=== PATIENT | female | born 1985 | race Caucasian/White ===

== ENCOUNTER 2023-04-24 08:28 | Observation (INO) | payer BC ==
--- NOTE | 2023-04-24 08:38 | ERPHSYRPT ---
- History of Present Illness Time Seen by Provider: 04/24/23 08:38 Historian: patient Exam Limitations: no limitations Patient Subjective Stated Complaint: Pt states "I started to get a headache at [employer] yesterday and last night I had a fever then when I was sleeping, my chest started to hurt. It felt like I could not get a breath in." Triage Nursing Assessment: Pt presented alert and oriented X 3, skin pwd. Pt ambulates with an upright steady gait, able to speak in clear full sentences. Pt resting comfortably on the bed. Physician History: This is a 37-year-old white female patient with no known cardiac disease or coronary artery disease who states that the prior to this evaluation she noticed her feeling kind of hot and sweaty. She did not take her temperature at that time. However within the next couple of days she had a pretty significant headache followed by what she felt was a fever then a sharp central substernal nonradiating chest pain and some mild shortness of breath. The symptoms have persisted since yesterday and therefore she came in to the emergency department for evaluation. Patient presents very anxious. Her room air oxygenation saturation level is 100%. She does have a history of elevated cholesterol which she drinks an herb solution for this medical issue. Patient d oes state that a week before, her children were sick with viral illness. Patient has not had any nausea vomiting or diarrhea symptoms. She has not had a cough. Timing/Duration: day(s) (4) Quality: sharpness, stabbing Location: substernal, central Chest Pain Radiation: no radiation Severity of Pain-Max: mild (To moderate) Severity of Pain-Current: mild Modifying Factors: Improves With: nothing Associated Symptoms: shortness of breath, No cough Prior Chest Pain/Cardiac Workup: no prior chest pain, no prior cardiac workup Nitro Today/Relief: no nitro taken today Aspirin Treatment Today: 81 mg x 4, provided by ED Allergies/Adverse Reactions: cefaclor [From Ceclor] Allergy (Intermediate, Verified 04/24/23 08:36) Hives Home Medications: No Reportable Medications [No Reported Medications] 04/24/23 [History] Hx Tetanus, Diphtheria Vaccination/Date Given: No Hx Influenza Vaccination/Date Given: No Hx Pneumococcal Vaccination/Date Given: No Immunizations Up to Date: No Travel Risk - International Travel Have you traveled outside of the country in past 3 weeks: No - Coronavirus Screening Are you exhibiting any of the following symptoms?: Yes Symptoms: Fever, Headaches/Body Aches/Fatigue Close contact with a COVID-19 positive Pt in past 14-21 Days: No - Vaccine Status Have you recieved a Covid-19 vaccination: No - Review of Systems Constitutional: No Symptoms Eyes: No Symptoms Ears, Nose, & Throat: No Symptoms Respiratory: Dyspnea on Exertion (WEATHERS) Cardiac: Chest Pain Abdominal/Gastrointestinal: No Symptoms Genitourinary Symptoms: No Symptoms Musculoskeletal: No Symptoms Skin: No Symptoms Neurological: No Symptoms Psychological: No Symptoms Endocrine: No Symptoms Hematologic/Lymphatic: No Symptoms Immunological/Allergic: No Symptoms All Other Systems: Reviewed and Negative - Past Medical History Pertinent Past Medical History: Yes Cardiac History: High Cholesterol - Past Surgical History Past Surgical History: Yes Other Surgical History: obie. t & a. c section - Social History Smoking Status: Never smoker Exposure to second hand smoke: No Drug Use: none Patient Lives Alone: No - Female History Hx Last Menstrual Period: 04/05/2023 Hx Now: No - Nursing Vital Signs Nursing Vital Signs: Initial Vital Signs Temperature 98.2 F 04/24/23 08:29 Pulse Rate 103 H 04/24/23 08:29 Respiratory Rate 24 04/24/23 08:29 Blood Pressure 138/94 04/24/23 08:29 O2 Sat by Pulse Oximetry 100 04/24/23 08:29 Pain Scale Pain Intensity 0 - Physical Exam General Appearance: no apparent distress, alert, anxiety Eye Exam: PERRL/EOMI, eyes nml inspection Ears, Nose, Throat Exam: normal ENT inspection, moist mucous membranes Neck Exam: normal inspection, non-tender, supple, full range of motion Respiratory Exam: normal breath sounds, chest tenderness, lungs clear, airway intact, No respiratory distress Cardiovascular Exam: regular rate/rhythm, normal heart sounds, normal peripheral pulses Gastrointestinal/Abdomen Exam: soft, normal bowel sounds, organomegaly, No tenderness Rectal Exam: not done Back Exam: normal inspection, normal range of motion, No CVA tenderness, No vertebral tenderness Extremity Exam: normal inspection, normal range of motion, pelvis stable Neurologic Exam: alert, oriented x 3, cooperative, human resources hr representative II-XII nml as tested, normal mood/affect, nml cerebellar function, nml station & gait, sensation nml Skin Exam: normal color, warm, dry Lymphatic Exam: No adenopathy SpO2 Interpretation: normal SpO2: 100 O2 Delivery: Room Air - Course Nursing assessment & vital signs reviewed: Yes EKG Interpreted by Me: RATE (102), Sinus Tach, NORMAL AXIS, NORMAL INTERVALS, NORMAL QRS, NORMAL ST-T, Other (No acute ischemic changes on today's twelve-lead EKG.) Ordered Tests: Active Orders 24 hr Category Date Time Status Coating Machine Operator Helper STAT Care 04/24/23 08:40 Active EKG-ER Only STAT Care 04/24/23 08:40 Active IV Insertion STAT Care 04/24/23 08:40 Active Pulse Oximetry (ED) STAT Care 04/24/23 08:40 Active CHEST WITH CONTRAST [CT] Stat Exams 04/24/23 10:25 Completed BLOOD CULTURE Stat Lab 04/24/23 09:05 Received CBC W DIFF Stat Lab 04/24/23 09:22 Completed CMP Stat Lab 04/24/23 09:22 Completed D-DIMER QUANTITATIVE Stat Lab 04/24/23 09:22 Completed HCG QUALITATIVE, SERUM Stat Lab 04/24/23 09:22 Completed MONO SCREEN Stat Lab 04/24/23 09:22 Completed NT PRO BNPII Stat Lab 04/24/23 09:22 Completed TROPONIN Q4H Lab 04/24/23 09:22 Completed TROPONIN Q4H Lab 04/24/23 12:45 Ordered TROPONIN Q4H Lab 04/24/23 16:45 Ordered Transfer Order Routine Transfer 04/24/23 Ordered Medication Summary Discontinued Medications Generic Name Dose Route Start Last Admin Trade Name Freq PRN Reason Stop Dose Admin Aspirin 324 mg 04/24/23 08:40 04/24/23 08:52 Aspirin 81 Mg Tab.Chew PO 04/24/23 08:41 324 mg STAT ONE Administration Aspirin Confirm 04/24/23 08:52 Aspirin 81 Mg Tab.Chew Administered 04/24/23 08:53 Dose 324 mg .ROUTE .STK-MED ONE Enoxaparin Sodium 90 mg 04/24/23 11:29 04/24/23 11:34 Enoxaparin Sodium 120 Mg/0.8 Ml Syringe SQ 04/24/23 11:30 90 mg STAT STA Administration Enoxaparin Sodium Confirm 04/24/23 11:33 Enoxaparin Sodium 120 Mg/0.8 Ml Syringe Administered 04/24/23 11:34 Dose 120 mg SQ .STK-MED ONE Sodium Chloride 500 mls @ 500 mls/hr 04/24/23 09:40 04/24/23 11:25 Sodium Chloride 0.9% 500 Ml IV 04/24/23 10:39 Infused .Q1H ONE Infusion Sodium Chloride Confirm 04/24/23 10:03 Sodium Chloride 0.9% 500 Ml Administered 04/24/23 10:04 Dose 500 mls @ ud IV .STK-MED ONE Lab/Rad Data: Laboratory Result Diagrams 04/24/23 09:22 04/24/23 09:22 Laboratory Results 04/24/23 04/24/23 04/24/23 Range/Units 09:22 09:22 09:22 WBC (4.0-10.5) x10^3/uL RBC (4.1-5.4) x10^6/uL Hgb (12.0-16.0) g/dL Hct (35-47) % MCV (78-100) fL MCH (26-32) pg MCHC (32-36) g/dL RDW (11.5-14.0) % Plt Count (150-450) x10^3/uL MPV (7.5-11.0) fL Gran % (36.0-66.0) % Immature Gran % (Auto) (0.00-0.4) % Nucleat RBC Rel Count (0.00-0.1) % Eos # (Auto) (0-0.5) x10^3/uL Immature Gran # (Auto) (0.00-0.03) x10^3u/L Absolute Lymphs (auto) (1.0-4.6) x10^3/uL Absolute Monos (auto) (0.0-1.3) x10^3/uL Absolute Nucleated RBC (0.00-0.01) x10^3u/L Lymphocytes % (24.0-44.0) % Monocytes % (0.0-12.0) % Eosinophils % (0.00-5.0) % Basophils % (0.0-0.4) % Absolute Granulocytes (1.4-6.9) x10^3/uL Basophils # (0-0.4) x10^3/uL D-Dimer (0.0-0.50) mg/L Sodium (137-145) mmol/L Potassium (3.5-5.1) mmol/L Chloride (98-107) mmol/L Carbon Dioxide (22-30) mmol/L Anion Gap (5-15) MEQ/L BUN (7-17) mg/dL Creatinine (0.52-1.04) mg/dL Estimated GFR ML/MIN Glucose (74-106) mg/dL Calcium (8.4-10.2) mg/dL Total Bilirubin (0.2-1.3) mg/dL AST (14-36) U/L ALT (0-35) U/L Alkaline Phosphatase (38-126) U/L Troponin I < 0.012 (0.000-0.034) ng/mL NT-Pro-B Natriuret Pep 39.0 (<300) pg/mL Serum Total Protein (6.3-8.2) g/dL Albumin (3.5-5.0) g/dL Serum HCG, Qual NEGATIVE (NEGATIVE) Monoscreen NEGATIVE (NEGATIVE) Influenza Type A Ag NEGATIVE (NEGATIVE) Influenza Type B Ag NEGATIVE (NEGATIVE) RSV (PCR) NEGATIVE (NEGATIVE) SARS-CoV-2 (PCR) NEGATIVE (NEGATIVE) Group A Strep Antibody (NEGATIVE) 04/24/23 04/24/23 04/24/23 Range/Units 09:22 09:22 09:22 WBC (4.0-10.5) x10^3/uL RBC (4.1-5.4) x10^6/uL Hgb (12.0-16.0) g/dL Hct (35-47) % MCV (78-100) fL MCH (26-32) pg MCHC (32-36) g/dL RDW (11.5-14.0) % Plt Count (150-450) x10^3/uL MPV (7.5-11.0) fL Gran % (36.0-66.0) % Immature Gran % (Auto) (0.00-0.4) % Nucleat RBC Rel Count (0.00-0.1) % Eos # (Auto) (0-0.5) x10^3/uL Immature Gran # (Auto) (0.00-0.03) x10^3u/L Absolute Lymphs (auto) (1.0-4.6) x10^3/uL Absolute Monos (auto) (0.0-1.3) x10^3/uL Absolute Nucleated RBC (0.00-0.01) x10^3u/L Lymphocytes % (24.0-44.0) % Monocytes % (0.0-12.0) % Eosinophils % (0.00-5.0) % Basophils % (0.0-0.4) % Absolute Granulocytes (1.4-6.9) x10^3/uL Basophils # (0-0.4) x10^3/uL D-Dimer 0.62 H* (0.0-0.50) mg/L Sodium 138 (137-145) mmol/L Potassium 3.7 (3.5-5.1) mmol/L Chloride 104 (98-107) mmol/L Carbon Dioxide 23 (22-30) mmol/L Anion Gap 14.2 (5-15) MEQ/L BUN 16 (7-17) mg/dL Creatinine 0.68 (0.52-1.04) mg/dL Estimated GFR > 60.0 ML/MIN Glucose 98 (74-106) mg/dL Calcium 9.1 (8.4-10.2) mg/dL Total Bilirubin 0.50 (0.2-1.3) mg/dL AST 40 H (14-36) U/L ALT 48 H (0-35) U/L Alkaline Phosphatase 77 (38-126) U/L Troponin I (0.000-0.034) ng/mL NT-Pro-B Natriuret Pep (<300) pg/mL Serum Total Protein 7.4 (6.3-8.2) g/dL Albumin 4.4 (3.5-5.0) g/dL Serum HCG, Qual (NEGATIVE) Monoscreen (NEGATIVE) Influenza Type A Ag (NEGATIVE) Influenza Type B Ag (NEGATIVE) RSV (PCR) (NEGATIVE) SARS-CoV-2 (PCR) (NEGATIVE) Group A Strep Antibody NOT DETECTED (NEGATIVE) 04/24/23 Range/Units 09:22 WBC 8.5 (4.0-10.5) x10^3/uL RBC 4.86 (4.1-5.4) x10^6/uL Hgb 14.4 (12.0-16.0) g/dL Hct 40.8 (35-47) % MCV 84.0 (78-100) fL MCH 29.6 (26-32) pg MCHC 35.3 (32-36) g/dL RDW 12.4 (11.5-14.0) % Plt Count 193 (150-450) x10^3/uL MPV 10.5 (7.5-11.0) fL Gran % 78.3 H (36.0-66.0) % Immature Gran % (Auto) 0.2 (0.00-0.4) % Nucleat RBC Rel Count 0.0 (0.00-0.1) % Eos # (Auto) 0.07 (0-0.5) x10^3/uL Immature Gran # (Auto) 0.02 (0.00-0.03) x10^3u/L Absolute Lymphs (auto) 1.05 (1.0-4.6) x10^3/uL Absolute Monos (auto) 0.64 (0.0-1.3) x10^3/uL Absolute Nucleated RBC 0.00 (0.00-0.01) x10^3u/L Lymphocytes % 12.4 L (24.0-44.0) % Monocytes % 7.5 (0.0-12.0) % Eosinophils % 0.8 (0.00-5.0) % Basophils % 0.8 (0.0-0.4) % Absolute Granulocytes 6.65 (1.4-6.9) x10^3/uL Basophils # 0.07 (0-0.4) x10^3/uL D-Dimer (0.0-0.50) mg/L Sodium (137-145) mmol/L Potassium (3.5-5.1) mmol/L Chloride (98-107) mmol/L Carbon Dioxide (22-30) mmol/L Anion Gap (5-15) MEQ/L BUN (7-17) mg/dL Creatinine (0.52-1.04) mg/dL Estimated GFR ML/MIN Glucose (74-106) mg/dL Calcium (8.4-10.2) mg/dL Total Bilirubin (0.2-1.3) mg/dL AST (14-36) U/L ALT (0-35) U/L Alkaline Phosphatase (38-126) U/L Troponin I (0.000-0.034) ng/mL NT-Pro-B Natriuret Pep (<300) pg/mL Serum Total Protein (6.3-8.2) g/dL Albumin (3.5-5.0) g/dL Serum HCG, Qual (NEGATIVE) Monoscreen (NEGATIVE) Influenza Type A Ag (NEGATIVE) Influenza Type B Ag (NEGATIVE) RSV (PCR) (NEGATIVE) SARS-CoV-2 (PCR) (NEGATIVE) Group A Strep Antibody (NEGATIVE) - Progress Progress: improved, re-examined Air Movement: good Progress Note: 04/24/23 09:29 This patient's medical issue is 1 of high complexity. Level complex in the work-up performed is based on review of the patient's past medical history, re view of the patient's medication list, review of the patient's drug allergy list, history present illness and physical findings on examination. The work-up in this patient includes chest x-ray, twelve-lead EKG, troponin level, D-dimer level, COVID swab, group A strep, viral swabs, CBC, CMP. Patient is refusing any kind of narcotic pain medicine at this time. We did provide her with 4-81 mg baby aspirin. 04/24/23 10:[address] scan of the chest with contrast shows tiny nonoccluding pulmonary emboli seen in the left and right upper lobes without evidence of an infiltrate. I did speak with the patient's primary care provider, Dr. Coleman. He prefers that the patient be admitted and worked up in addition to starting anticoagulant therapy. He does not want to treat her initially as an outpatient. 04/24/23 11:50 I reviewed the patient history, patient's complaint, work-up performed and the results with Dr. Fajardo, our telehospitalist on-call. Together, we decided the patient will be admitted in the hospital and started on Lovenox. He will continue work-up of this patient in the hospital including venous Dopplers of bilateral lower extremities and echocardiogram. 04/24/23 11:52 Blood Culture(s) Obtained: Yes Antibiotics given: No Counseled pt/family regarding: lab results, diagnosis, need for follow-up, rad results Medical Desision Making - Independent Historian Additional History obtained from: Spouse - Diagnostic Testing Diagnostic test were ordered, analyzed, and reviewed by me: Yes Radiological Interpretation: Reviewed by me, Teleradiologist Report - Risk of complications The pt has a high risk of morbidity or mortality based on: Decision regarding hospitilization or escalation of hosp level of care - Departure Departure Disposition: In-patient Admission Clinical Impression: Pulmonary emboli Condition: Stable Critical Care Time: Yes Critical Care Time(excluding separately billable procedures): Critical 30-74 mins (45 minutes) Referrals: GABRIELLE COLEMAN [Primary Care Provider] - Follow up/PCP as directed
[2023-04-24] MEDS ORDERED: BABY ASPIRIN 81 MG CHEW PO ONE (08:40)
[2023-04-24] MEDS ORDERED: BABY ASPIRIN 81 MG CHEW ONE (08:52)
[2023-04-24 09:15] LABS: Absolute Neutrophil Ct (ANC) 6.65 x10^3/uL (1.4-6.9); BASOPHIL % 0.8 % (0.0-0.4); Basophil (Absolute #) 0.07 x10^3/uL (0-0.4); Eosinophil % 0.8 % (0.00-5.0); Eosinophil (Absolute #) 0.07 x10^3/uL (0-0.5); Hematocrit 40.8 % (35-47); Hemoglobin 14.4 g/dL (12.0-16.0); IMMATURE GRAN # 0.02 x10^3u/L (0.00-0.03); IMMATURE GRAN % 0.2 % (0.00-0.4); Lymphocyte (Absolute #) 1.05 x10^3/uL (1.0-4.6); Lymphocytes % 12.4 % (24.0-44.0); Mean Corpuscular Hemoglobin 29.6 pg (26-32); Mean Corpuscular Hgb Concent. 35.3 g/dL (32-36); Mean Platelet Volume 10.5 fL (7.5-11.0); Monocyte (Absolute #) 0.64 x10^3/uL (0.0-1.3); Monocytes % 7.5 % (0.0-12.0); Neutrophil % 78.3 % (36.0-66.0); Platelet Count 193 x10^3/uL (150-450); Red Blood Count 4.86 x10^6/uL (4.1-5.4); Red Cell Distribution Width 12.4 % (11.5-14.0); White Blood Count 8.5 x10^3/uL (4.0-10.5)
[2023-04-24 09:31] LABS: ALBUMIN 4.4 g/dL (3.5-5.0); ALKALINE PHOSPHATASE 77 U/L (38-126); ANION GAP 14.2 MEQ/L (5-15); BLOOD UREA NITROGEN 16 mg/dL (7-17); CHLORIDE 104 mmol/L (98-107); Calcium 9.1 mg/dL (8.4-10.2); Carbon Dioxide 23 mmol/L (22-30); Creatinine 1 0.68 mg/dL (0.52-1.04); EST GLOMERULAR FILTRATION RATE > 60.0 ML/MIN; Glucose 98 mg/dL (74-106); HCG SERUM TEST NEGATIVE (NEGATIVE); Potassium 3.7 mmol/L (3.5-5.1); SGOT/AST 40 U/L (14-36); SGPT/ALT 48 U/L (0-35); SODIUM 138 mmol/L (137-145); Total Protein 7.4 g/dL (6.3-8.2)
[2023-04-24] MEDS ORDERED: Sodium Chloride 0.9% 500 ML 500 ML IV ONE ×2 (09:40→10:03)
[2023-04-24 09:42] LABS: TROPONIN < 0.012 ng/mL (0.000-0.034)
[2023-04-24 09:54] LABS: INFLUENZA A NEGATIVE (NEGATIVE); INFLUENZA B NEGATIVE (NEGATIVE); RESPIRATORY SYNCTIAL VIRUS NEGATIVE (NEGATIVE); SARS-CoV-2 Xpert Express NEGATIVE (NEGATIVE)
--- NOTE | 2023-04-24 10:44 | XRAY ---
Indication: Chest pain. Elevated d-dimer. Multiple contiguous axial images obtained through the chest using 80 cc Isovue 370 contrast and PE protocol. Comparison: None Adequate opacification of the pulmonary arteries. Tiny nonoccluding pulmonary emboli seen in the left and right upper lobes. Heart is not enlarged. Aorta is normal in course and caliber. No pathologic mediastinal/hilar lymphadenopathy. Lungs demonstrate mild bilateral dependent atelectasis. No suspicious pulmonary mass/nodule, infiltrate, effusion, or pneumothorax. Bony thorax intact. Limited upper abdomen unremarkable. Impression: Tiny nonoccluding bilateral upper lobe pulmonary emboli. No distal pulmonary infarct.
[2023-04-24] MEDS ORDERED: ENOXAPARIN SODIUM SQ STA (11:29)
[2023-04-24] MEDS ORDERED: ENOXAPARIN SODIUM SQ ONE (11:33)
[2023-04-24] MEDS ORDERED: Zofran 4 MG/2 ML VIAL IV PRN (12:11)
--- NOTE | 2023-04-24 12:59 | PCM.HP ---
History of Present Illness - Chief Complaint Chief Complaint: PULMONARY EMBOLI Date: 04/24/23 History of Present Illness: is a 37 year old female with no known cardiac disease or coronary artery disease. She does have a hx of hyperlipidemia and stomach ulcers but does not take medication for either. She drinks an herb solution for hyperlipidemia. She states that the prior to this evaluation she noticed her feeling kind of hot and sweaty. She did not take her temperature at that time. However within the next couple of days she had a pretty significant headache followed by what she felt was a fever then a sharp central substernal nonradiating chest pain and some mild shortness of breath. The symptoms have persisted since yesterday and therefore she came in to the emergency department for evaluation. Room air oxygenation saturation level is 100%. Patient does state that a week before, her children were sick with viral illness. COVID test negative in ER. D- dimer was elevated at 0.62. CT scan for further eval shows: Tiny nonoccluding bilateral upper lobe pulmonary emboli. Pt does not take any meds at home and does not smoke. She denies any further concerns at this time. Will evaluate further with Echo and BLLE Venous duplex. Continue Lovenox for 48 hours then will change to Eliquis. She is concerned about cost and case management to discuss this with pt. She will need to f/u with hematology OP for further evaluation. Family is requesting Factor V lab test. She has no family hx of this. Discussed again need for OP F/u testing. - Review of Systems Constitutional: No Fever, No Chills Eyes: No Symptoms Ears, Nose, & Throat: No Symptoms Respiratory: No Cough, No Short Of Breath Cardiac: Chest Pain (increases with deep breath upper sternum and across), No Edema, No Syncope Abdominal/Gastrointestinal: No Abdominal Pain, No Nausea, No Vomiting, No Diarrhea Genitourinary Symptoms: No Dysuria Musculoskeletal: No Back Pain, No Neck Pain Skin: No Rash Neurological: No Dizziness, No Focal Weakness, No Sensory Changes Psychological: No Symptoms, Anxiety Endocrine: No Symptoms Hematologic/Lymphatic: No Symptoms Immunological/Allergic: No Symptoms Medications & Allergies Home Medications: Home Medication List No Reportable Medications [No Reported Medications] 04/24/23 [History Confirmed 04/24/23] Allergies/Adverse Reactions: Allergies Allergy/AdvReac Type Severity Reaction Status Date / Time cefaclor [From [facility]] Allergy Intermediate Hives Verified 04/24/23 08:36 - Past Medical History Past Medical History: Yes Cardiac History: High Cholesterol - Female History Hx Last Menstrual Period: 04/05/2023 Are you now?: No - Past Surgical History Past Surgical History: Yes Other Surgical History: obie. t & a. c section - Social History Smoking Status: Never smoker Exposure to second hand smoke: No Alcohol: None Drug Use: none - Physical Exam Vital Signs: Vital Signs - 24 hr Temp Pulse Pulse Resp BP BP Pulse Ox 04/24/23 11:56 100 04/24/23 10:10 96 H 14 130/87 99 04/24/23 10:00 100 H 22 132/98 04/24/23 09:50 99 H 26 H 138/82 96 04/24/23 09:40 98 H 16 144/94 97 04/24/23 09:30 102 H 17 151/93 97 04/24/23 09:20 96 H 15 142/88 98 04/24/23 09:10 97 H 14 157/104 97 04/24/23 08:54 101 H 14 146/105 97 04/24/23 08:50 100 H 18 142/100 99 04/24/23 08:29 98.2 F 103 H 97 H 24 138/94 100 General Appearance: no apparent distress, alert Neurologic Exam: alert, oriented x 3, cooperative, normal mood/affect, nml cerebellar function, nml station & gait, sensation nml, No motor deficits Eye Exam: PERRL/EOMI, eyes nml inspection Ears, Nose, Throat Exam: normal ENT inspection, TMs normal, pharynx normal, moist mucous membranes Neck Exam: normal inspection, non-tender, supple, full range of motion Respiratory Exam: normal breath sounds, lungs clear, No respiratory distress Cardiovascular Exam: regular rate/rhythm, normal heart sounds, normal peripheral pulses Gastrointestinal/Abdomen Exam: soft, normal bowel sounds, No tenderness, No mass Back Exam: normal inspection, normal range of motion, No CVA tenderness, No vertebral tenderness Extremity Exam: normal inspection, normal range of motion, pelvis stable Skin Exam: normal color, warm, dry, No rash Lymphatic Exam: No adenopathy Results - Labs Lab/Micro Results: Lab Results-Last 24 Hours 09/04/24/23 04/24/23 Range/Units 09:22 09:22 09:22 WBC 8.5 (4.0-10.5) x10^3/uL RBC 4.86 (4.1-5.4) x10^6/uL Hgb 14.4 (12.0-16.0) g/dL Hct 40.8 (35-47) % MCV 84.0 (78-100) fL MCH 29.6 (26-32) pg MCHC 35.3 (32-36) g/dL RDW 12.4 (11.5-14.0) % Plt Count 193 (150-450) x10^3/uL MPV 10.5 (7.5-11.0) fL Gran % 78.3 H (36.0-66.0) % Immature Gran % (Auto) 0.2 (0.00-0.4) % Nucleat RBC Rel Count 0.0 (0.00-0.1) % Eos # (Auto) 0.07 (0-0.5) x10^3/uL Immature Gran # (Auto) 0.02 (0.00-0.03) x10^3u/L Absolute Lymphs (auto) 1.05 (1.0-4.6) x10^3/uL Absolute Monos (auto) 0.64 (0.0-1.3) x10^3/uL Absolute Nucleated RBC 0.00 (0.00-0.01) x10^3u/L Lymphocytes % 12.4 L (24.0-44.0) % Monocytes % 7.5 (0.0-12.0) % Eosinophils % 0.8 (0.00-5.0) % Basophils % 0.8 (0.0-0.4) % Absolute Granulocytes 6.65 (1.4-6.9) x10^3/uL Basophils # 0.07 (0-0.4) x10^3/uL D-Dimer 0.62 H* (0.0-0.50) mg/L Sodium 138 (137-145) mmol/L Potassium 3.7 (3.5-5.1) mmol/L Chloride 104 (98-107) mmol/L Carbon Dioxide 23 (22-30) mmol/L Anion Gap 14.2 (5-15) MEQ/L BUN 16 (7-17) mg/dL Creatinine 0.68 (0.52-1.04) mg/dL Estimated GFR > 60.0 ML/MIN Glucose 98 (74-106) mg/dL Calcium 9.1 (8.4-10.2) mg/dL Total Bilirubin 0.50 (0.2-1.3) mg/dL AST 40 H (14-36) U/L ALT 48 H (0-35) U/L Alkaline Phosphatase 77 (38-126) U/L Troponin I (0.000-0.034) ng/mL NT-Pro-B Natriuret Pep (<300) pg/mL Serum Total Protein 7.4 (6.3-8.2) g/dL Albumin 4.4 (3.5-5.0) g/dL Serum HCG, Qual (NEGATIVE) Monoscreen (NEGATIVE) Influenza Type A Ag (NEGATIVE) Influenza Type B Ag (NEGATIVE) RSV (PCR) (NEGATIVE) SARS-CoV-2 (PCR) (NEGATIVE) Group A Strep Antibody (NEGATIVE) 04/24/23 04/24/23 04/24/23 Range/Units 09:22 09:22 09:22 WBC (4.0-10.5) x10^3/uL RBC (4.1-5.4) x10^6/uL Hgb (12.0-16.0) g/dL Hct (35-47) % MCV (78-100) fL MCH (26-32) pg MCHC (32-36) g/dL RDW (11.5-14.0) % Plt Count (150-450) x10^3/uL MPV (7.5-11.0) fL Gran % (36.0-66.0) % Immature Gran % (Auto) (0.00-0.4) % Nucleat RBC Rel Count (0.00-0.1) % Eos # (Auto) (0-0.5) x10^3/uL Immature Gran # (Auto) (0.00-0.03) x10^3u/L Absolute Lymphs (auto) (1.0-4.6) x10^3/uL Absolute Monos (auto) (0.0-1.3) x10^3/uL Absolute Nucleated RBC (0.00-0.01) x10^3u/L Lymphocytes % (24.0-44.0) % Monocytes % (0.0-12.0) % Eosinophils % (0.00-5.0) % Basophils % (0.0-0.4) % Absolute Granulocytes (1.4-6.9) x10^3/uL Basophils # (0-0.4) x10^3/uL D-Dimer (0.0-0.50) mg/L Sodium (137-145) mmol/L Potassium (3.5-5.1) mmol/L Chloride (98-107) mmol/L Carbon Dioxide (22-30) mmol/L Anion Gap (5-15) MEQ/L BUN (7-17) mg/dL Creatinine (0.52-1.04) mg/dL Estimated GFR ML/MIN Glucose (74-106) mg/dL Calcium (8.4-10.2) mg/dL Total Bilirubin (0.2-1.3) mg/dL AST (14-36) U/L ALT (0-35) U/L Alkaline Phosphatase (38-126) U/L Troponin I < 0.012 (0.000-0.034) ng/mL NT-Pro-B Natriuret Pep 39.0 (<300) pg/mL Serum Total Protein (6.3-8.2) g/dL Albumin (3.5-5.0) g/dL Serum HCG, Qual NEGATIVE (NEGATIVE) Monoscreen NEGATIVE (NEGATIVE) Influenza Type A Ag (NEGATIVE) Influenza Type B Ag (NEGATIVE) RSV (PCR) (NEGATIVE) SARS-CoV-2 (PCR) (NEGATIVE) Group A Strep Antibody NOT DETECTED (NEGATIVE) 04/24/23 Range/Units 09:22 WBC (4.0-10.5) x10^3/uL RBC (4.1-5.4) x10^6/uL Hgb (12.0-16.0) g/dL Hct (35-47) % MCV (78-100) fL MCH (26-32) pg MCHC (32-36) g/dL RDW (11.5-14.0) % Plt Count (150-450) x10^3/uL MPV (7.5-11.0) fL Gran % (36.0-66.0) % Immature Gran % (Auto) (0.00-0.4) % Nucleat RBC Rel Count (0.00-0.1) % Eos # (Auto) (0-0.5) x10^3/uL Immature Gran # (Auto) (0.00-0.03) x10^3u/L Absolute Lymphs (auto) (1.0-4.6) x10^3/uL Absolute Monos (auto) (0.0-1.3) x10^3/uL Absolute Nucleated RBC (0.00-0.01) x10^3u/L Lymphocytes % (24.0-44.0) % Monocytes % (0.0-12.0) % Eosinophils % (0.00-5.0) % Basophils % (0.0-0.4) % Absolute Granulocytes (1.4-6.9) x10^3/uL Basophils # (0-0.4) x10^3/uL D-Dimer (0.0-0.50) mg/L Sodium (137-145) mmol/L Potassium (3.5-5.1) mmol/L Chloride (98-107) mmol/L Carbon Dioxide (22-30) mmol/L Anion Gap (5-15) MEQ/L BUN (7-17) mg/dL Creatinine (0.52-1.04) mg/dL Estimated GFR ML/MIN Glucose (74-106) mg/dL Calcium (8.4-10.2) mg/dL Total Bilirubin (0.2-1.3) mg/dL AST (14-36) U/L ALT (0-35) U/L Alkaline Phosphatase (38-126) U/L Troponin I (0.000-0.034) ng/mL NT-Pro-B Natriuret Pep (<300) pg/mL Serum Total Protein (6.3-8.2) g/dL Albumin (3.5-5.0) g/dL Serum HCG, Qual (NEGATIVE) Monoscreen (NEGATIVE) Influenza Type A Ag NEGATIVE (NEGATIVE) Influenza Type B Ag NEGATIVE (NEGATIVE) RSV (PCR) NEGATIVE (NEGATIVE) SARS-CoV-2 (PCR) NEGATIVE (NEGATIVE) Group A Strep Antibody (NEGATIVE) - Radiology Impressions Radiology Exams & Impressions: Radiology Procedures Category Date Time Status CHEST WITH CONTRAST [CT] Stat Exams 04/24/23 10:25 Completed - Other Procedures and Tests Respiratory Therapy 04/24/23 12:11 EKG REPEAT IN AM Assessment/Plan (1) Pulmonary emboli Current Visit: Yes Status: Acute Assessment & Plan: - D-Dimer 0.62 - Chest CT: 04/24/23 Tiny nonoccluding bilateral upper lobe pulmonary emboli. No distal pulmonary infarct - Start Lovenox 90 mg Q12- change to Eliquis after 48 hours - Pt concern for cost- discussed with case management - tele - EKG reviewed - Echo - BLLE venous Duplex - Factor V lab test ordered - Will need to f/u with hematology OP for further workup. Code(s): I26.99 - OTHER PULMONARY EMBOLISM WITHOUT ACUTE COR PULMONALE (2) Hyperlipidemia Current Visit: Yes Status: Acute Assessment & Plan: - Lipid panel in AM Code(s): E78.5 - HYPERLIPIDEMIA, UNSPECIFIED (3) Obesity (BMI 30.0-34.9) Current Visit: Yes Status: Acute Assessment & Plan: - advised diet control Code status: Full VTE: Lovenox Code(s): E66.9 - OBESITY, UNSPECIFIED
[2023-04-24] MEDS: Sodium Chloride 0.9% 1000 ML 1,000 ML IV SCH ×2 (13:21→15:53)
[2023-04-24] MEDS: TYLENOL 325 MG PO PRN ×2 (13:21→21:49)
[2023-04-24] MEDS: Pepcid 20 MG PO SCH ×2 (15:47→21:41)
--- NOTE | 2023-04-24 16:35 | XRAY ---
Indication: Positive pulmonary [place]. Two-dimensional sonogram and color Doppler imaging of the major venous vessels of the left and right leg performed. Comparison: None No thrombus seen in the examined deep venous vessels of the left and right leg including greater saphenous vein. Veins demonstrate normal compressibility. Venous waveforms are normal with and without augmentation. Impression: Left and right legs negative for DVT.
[2023-04-24 19:33] VITALS: RESP 16
[2023-04-24] MEDS: ENOXAPARIN SODIUM SQ SCH (21:41)
[2023-04-24] MEDS ORDERED: ENOXAPARIN SODIUM SQ SCH (22:00)
[2023-04-25] MEDS ORDERED: PHARMACY DOSING REQUIRED: VANCOMYCIN IV STA (03:53)
[2023-04-25] MEDS ORDERED: VANCOMYCIN 1.25 GM/250 ML BAG 1.25 GM/250 ML PIGGYBACK IV SCH (04:00)
[2023-04-25 04:56] LABS: Absolute Neutrophil Ct (ANC) 1.59 x10^3/uL (1.4-6.9); BASOPHIL % 1.5 % (0.0-0.4); Basophil (Absolute #) 0.06 x10^3/uL (0-0.4); Eosinophil % 1.7 % (0.00-5.0); Eosinophil (Absolute #) 0.07 x10^3/uL (0-0.5); Hematocrit 36.4 % (35-47); Hemoglobin 12.5 g/dL (12.0-16.0); IMMATURE GRAN # 0.01 x10^3u/L (0.00-0.03); IMMATURE GRAN % 0.2 % (0.00-0.4); Lymphocytes % 41.9 % (24.0-44.0); Mean Cell Volume 84.8 fL (78-100); Mean Corpuscular Hemoglobin 29.1 pg (26-32); Mean Corpuscular Hgb Concent. 34.3 g/dL (32-36); Mean Platelet Volume 9.8 fL (7.5-11.0); Monocyte (Absolute #) 0.63 x10^3/uL (0.0-1.3); Monocytes % 15.5 % (0.0-12.0); Neutrophil % 39.2 % (36.0-66.0); Platelet Count 157 x10^3/uL (150-450); Red Blood Count 4.29 x10^6/uL (4.1-5.4); Red Cell Distribution Width 12.8 % (11.5-14.0); White Blood Count 4.1 x10^3/uL (4.0-10.5)
[2023-04-25 05:16] LABS: ALBUMIN 3.7 g/dL (3.5-5.0); ALKALINE PHOSPHATASE 58 U/L (38-126); BLOOD UREA NITROGEN 10 mg/dL (7-17); Glucose 91 mg/dL (74-106); Potassium 3.5 mmol/L (3.5-5.1); SGOT/AST 30 U/L (14-36); SODIUM 138 mmol/L (137-145); Total Protein 6.5 g/dL (6.3-8.2)
[2023-04-25 05:26] LABS: INR 0.96 (0.8-3.0); PROTIME 10.5 SECONDS (9.4-12.5); PTT 37.5 SECONDS (25.1-36.5)
[2023-04-25 05:44] LABS: ANION GAP 8.1 MEQ/L (5-15); CHLORIDE 104 mmol/L (98-107); Calcium 8.3 mg/dL (8.4-10.2); Carbon Dioxide 29 mmol/L (22-30); Cholesterol 169 mg/dL (50-200); Creatinine 1 0.69 mg/dL (0.52-1.04); EST GLOMERULAR FILTRATION RATE > 60.0 ML/MIN; HDL CHOLESTEROL 32 mg/dL (40-60); LDL, DIRECT 93 mg/dL (30-100); Risk Ratio 5.2; SGPT/ALT 39 U/L (0-35); TRIGLYCERIDE 217 mg/dL (30-150)
[2023-04-25] MEDS: ENOXAPARIN SODIUM SQ SCH (09:26)
[2023-04-25] MEDS: Pepcid 20 MG PO SCH (09:26)
--- NOTE | 2023-04-25 11:17 | PCM.DS ---
Discharge Summary Date of Admission: 04/24/23 12:09 Date of Discharge: 04/25/23 Admitting Physician: SEERNA GARCIA MD Primary Care Provider: GABRIELLE THORPE Allergies Allergies cefaclor [From Ceclor] Allergy (Intermediate, Verified 04/24/23 08:36) [facility] Summary - Hospital Course Hospital Course: is a 37 year old female with no known cardiac disease or coronary artery disease. She does have a hx of hyperlipidemia and stomach ulcers but does not take medication for either. She drinks an herb solution for hyperlipidemia. She states that the prior to this evaluation she noticed her feeling kind of hot and sweaty. She did not take her temperature at that time. However within the next couple of days she had a pretty significant headache followed by what she felt was a fever then a sharp central substernal nonradiating chest pain and some mild shortness of breath. The symptoms have persisted since yesterday and therefore she came in to the emergency department for evaluation. Room air oxygenation saturation level is 100%. Patient does state that a week before, her children were sick with viral illness. COVID test negative in ER. D- dimer was mildly elevated at 0.62. CT scan for further eval shows: Tiny nonoccluding bilateral upper lobe pulmonary emboli. Pt does not take any meds at home, does not smoke, no recent surgery. She denies any further concerns at this time. Will evaluate further with Echo and BLLE Venous duplex. Started Lovenox for 48 hours then changed to Eliquis for OP use and continue for 3-6 months. She wants to f/u with hematology - Dr. Tate OP for further evaluation. Family is requested Factor V lab test this was drawn IP, this is still pending. She has no family hx of this. Discussed again need for OP f/u testing. - Vitals & Intake/Output Vital Signs: Vital Signs Temperature 97.8 F 04/25/23 06:56 Pulse Rate 66 04/25/23 06:56 Respiratory Rate 16 04/25/23 06:56 Blood Pressure 112/71 04/25/23 06:56 O2 Sat by Pulse Oximetry 97 04/25/23 06:56 Intake & Output: Intake & Output 04/22/23 04/23/23 04/24/23 04/25/23 11:59 11:59 11:59 11:59 Intake Total 2524 Balance 2524 Weight 86.5 kg 86.6 kg - Lab Result Diagrams: 04/25/23 04:00 04/25/23 04:00 Lab Results-Last 24 Hrs: Lab Results-Last 24 Hours 04/24/23 04/24/23 04/25/23 Range/Units 13:10 17:18 04:00 WBC 4.1 (4.0-10.5) x10^3/uL RBC 4.29 (4.1-5.4) x10^6/uL Hgb 12.5 (12.0-16.0) g/dL Hct 36.4 (35-47) % MCV 84.8 (78-100) fL MCH 29.1 (26-32) pg MCHC 34.3 (32-36) g/dL RDW 12.8 (11.5-14.0) % Plt Count 157 (150-450) x10^3/uL MPV 9.8 (7.5-11.0) fL Gran % 39.2 (36.0-66.0) % Immature Gran % (Auto) 0.2 (0.00-0.4) % Nucleat RBC Rel Count 0.0 (0.00-0.1) % Eos # (Auto) 0.07 (0-0.5) x10^3/uL Immature Gran # (Auto) 0.01 (0.00-0.03) x10^3u/L Absolute Lymphs (auto) 1.70 (1.0-4.6) x10^3/uL Absolute Monos (auto) 0.63 (0.0-1.3) x10^3/uL Absolute Nucleated RBC 0.00 (0.00-0.01) x10^3u/L Lymphocytes % 41.9 (24.0-44.0) % Monocytes % 15.5 H (0.0-12.0) % Eosinophils % 1.7 (0.00-5.0) % Basophils % 1.5 (0.0-0.4) % Absolute Granulocytes 1.59 (1.4-6.9) x10^3/uL Basophils # 0.06 (0-0.4) x10^3/uL PT (9.4-12.5) SECONDS INR (0.8-3.0) APTT (25.1-36.5) SECONDS Sodium (137-145) mmol/L Potassium (3.5-5.1) mmol/L Chloride (98-107) mmol/L Carbon Dioxide (22-30) mmol/L Anion Gap (5-15) MEQ/L BUN (7-17) mg/dL Creatinine (0.52-1.04) mg/dL Estimated GFR ML/MIN Glucose (74-106) mg/dL Calcium (8.4-10.2) mg/dL Total Bilirubin (0.2-1.3) mg/dL AST (14-36) U/L ALT (0-35) U/L Alkaline Phosphatase (38-126) U/L Troponin I < 0.012 < 0.012 (0.000-0.034) ng/mL Serum Total Protein (6.3-8.2) g/dL Albumin (3.5-5.0) g/dL Triglycerides (30-150) mg/dL Cholesterol (50-200) mg/dL LDL Cholesterol (30-100) mg/dL HDL Cholesterol (40-60) mg/dL Heart Disease Risk Ratio 04/25/23 04/25/23 Range/Units 04:00 04:00 WBC (4.0-10.5) x10^3/uL RBC (4.1-5.4) x10^6/uL Hgb (12.0-16.0) g/dL Hct (35-47) % MCV (78-100) fL MCH (26-32) pg MCHC (32-36) g/dL RDW (11.5-14.0) % Plt Count (150-450) x10^3/uL MPV (7.5-11.0) fL Gran % (36.0-66.0) % Immature Gran % (Auto) (0.00-0.4) % Nucleat RBC Rel Count (0.00-0.1) % Eos # (Auto) (0-0.5) x10^3/uL Immature Gran # (Auto) (0.00-0.03) x10^3u/L Absolute Lymphs (auto) (1.0-4.6) x10^3/uL Absolute Monos (auto) (0.0-1.3) x10^3/uL Absolute Nucleated RBC (0.00-0.01) x10^3u/L Lymphocytes % (24.0-44.0) % Monocytes % (0.0-12.0) % Eosinophils % (0.00-5.0) % Basophils % (0.0-0.4) % Absolute Granulocytes (1.4-6.9) x10^3/uL Basophils # (0-0.4) x10^3/uL PT 10.5 (9.4-12.5) SECONDS INR 0.96 (0.8-3.0) APTT 37.5 H (25.1-36.5) SECONDS Sodium 138 (137-145) mmol/L Potassium 3.5 (3.5-5.1) mmol/L Chloride 104 (98-107) mmol/L Carbon Dioxide 29 (22-30) mmol/L Anion Gap 8.1 (5-15) MEQ/L BUN 10 (7-17) mg/dL Creatinine 0.69 (0.52-1.04) mg/dL Estimated GFR > 60.0 ML/MIN Glucose 91 (74-106) mg/dL Calcium 8.3 L (8.4-10.2) mg/dL Total Bilirubin 0.50 (0.2-1.3) mg/dL AST 30 (14-36) U/L ALT 39 H (0-35) U/L Alkaline Phosphatase 58 (38-126) U/L Troponin I (0.000-0.034) ng/mL Serum Total Protein 6.5 (6.3-8.2) g/dL Albumin 3.7 (3.5-5.0) g/dL Triglycerides 217 H (30-150) mg/dL Cholesterol 169 (50-200) mg/dL LDL Cholesterol 93 (30-100) mg/dL HDL Cholesterol 32 L (40-60) mg/dL Heart Disease Risk Ratio 5.2 Micro Results-Entire Visit: Microbiology 04/24/23 09:05 Blood Culture Gram Stain - Preliminary Blood Blood Culture - Preliminary 04/24/23 09:05 Blood Culture - Preliminary Blood - Radiology Exams Ordered Rad Exams-Entire Visit: Radiology Procedures Category Date Time Status CHEST WITH CONTRAST [CT] Stat Exams 04/24/23 10:25 Completed ECHO W/2D AND DOPPLER [US] Routine Exams 04/24/23 14:41 Taken ULTRASOUND BILATERAL LOWER EXTREMITY [VENOUS BILATERAL Exams 04/24/23 14:42 Completed EXTREMITY] [US] Routine - Procedures and Test Procedures and Tests throughout Hospitalization: Therapy Orders & Screens 04/24/23 12:11 EKG REPEAT IN AM Comment: 04/24/23 13:49 EKG ONCE Comment: Diagnosis: PULMONARY EMBOLI Discharge Exam General Appearance: no apparent distress, alert Neurologic Exam: alert, oriented x 3, cooperative, normal mood/affect, nml cerebellar function, sensation nml, No motor deficits Eye Exam: PERRL, EOMI, eyes nml inspection Ears, Nose, Throat Exam: normal ENT inspection, pharynx normal, moist mucous membranes Neck Exam: normal inspection, non-tender, supple, full range of motion Respiratory Exam: normal breath sounds, lungs clear, No respiratory distress Cardiovascular Exam: regular rate/rhythm, normal heart sounds Gastrointestinal/Abdomen Exam: soft, No tenderness, No mass Pelvic Exam: deferred Rectal Exam: deferred Back Exam: normal inspection, normal range of motion, No CVA tenderness, No vertebral tenderness Extremity Exam: normal inspection, normal range of motion Skin Exam: normal color, warm, dry Final Diagnosis/Problem List - Final Discharge Diagnosis/Problem (1) Pulmonary emboli Current Visit: Yes Status: Acute Code(s): I26.99 - OTHER PULMONARY EMBOLISM WITHOUT ACUTE COR PULMONALE (2) Hyperlipidemia Current Visit: Yes Status: Acute Code(s): E78.5 - HYPERLIPIDEMIA, UNSPECIFIED (3) Obesity (BMI 30.0-34.9) Current Visit: Yes Status: Acute Assessment & Plan: (1) Pulmonary emboli Current Visit: Yes Status: Acute Assessment & Plan: - D-Dimer 0.62 - Chest CT: 04/24/23 Tiny nonoccluding bilateral upper lobe pulmonary emboli. No distal pulmonary infarct - Start Lovenox 90 mg Q12- change to Eliquis after 48 hours - Pt concern for cost- discussed with case management - tele - EKG reviewed - Echo - BLLE venous Duplex - Factor V lab test ordered - Will need to f/u with hematology OP for further workup. 04/25 - will send in RX for Eliquis 10mg BID for 7 days then 5mg BID thereafter - It will be up to PCP or hematology to continue RX for 3-6 months - Pt wants to f/u with Dr. Tate OP - echo negative per Dr. Haile Code(s): I26.99 - OTHER PULMONARY EMBOLISM WITHOUT ACUTE COR PULMONALE (2) Hyperlipidemia Current Visit: Yes Status: Acute Assessment & Plan: - Lipid panel 04/25 - Triglycerides 217 - HDL 32 - discussed diet and exercise control Code(s): E78.5 - HYPERLIPIDEMIA, UNSPECIFIED (3) Obesity (BMI 30.0-34.9) Current Visit: Yes Status: Acute Assessment & Plan: - advised diet control Code(s): E66.9 - OBESITY, UNSPECIFIED (4) Positive blood culture Current Visit: Yes Status: Acute Assessment & Plan: - appears to be contaminated - Read back last night 1 positive blood culture gram positive cocci - F/U results OP with PCP - Stop vancomycin that was started last night. Code(s): R78.81 - BACTEREMIA - Discharge Discharge Date: 04/25/23 Disposition: Home, Self-Care Condition: Stable Prescriptions: New Apixaban [Eliquis] 10 mg PO BID 7 Days #14 tablet Apixaban [Eliquis] 5 mg PO BID 30 Days #60 Follow up with: IRA TATE MD [NON-STAFF PHY W/O PRIVILEGES] - 05/08/23 11:30 am GABRIELLE THORPE [Primary Care Provider] -
[2023-04-25 11:51] VITALS: BP 122/81; PULSE 68; TEMP 97.9; O2SAT 98
--- NOTE | 2023-04-25 13:41 | ECHO ---
Transthoracic echocardiographic examination and color Doppler was done on 04/24/2023. INDICATION: Pulmonary embolism. IMPRESSION: 1) NO REGIONAL WALL MOTION ABNORMALITY. ESTIMATED GLOBAL LEFT VENTRICULAR EJECTION FRACTION OF 60 TO 65%. 2) TRACE TRICUSPID REGURGITATION. RIGHT VENTRICULAR SYSTOLIC PRESSURE OF 28 MM OF MERCURY. 3) TRACE MITRAL REGURGITATION. The left ventricle is visualized and demonstrated adequate motion of all the segments. Estimated global left ventricular ejection fraction between 60 and 65%. The left ventricular thickness is normal. The mitral valve is seen and this opens adequately. There is trace mitral regurgitation. Left atrium is normal. The aortic valve opens adequately. There is no significant gradient across the left ventricular outflow tract. The right side chambers are normal with normal right ventricular contractility. There is trace tricuspid regurgitation. The right ventricular systolic pressure of 28 mm of Mercury.
[2023-04-25] MEDS ORDERED: VANCOMYCIN 1 GRAM/200 ML BAG 1 GM/200 ML PIGGYBACK IV SCH (14:00)
[2023-04-26] MEDS ORDERED: TROUGH DRUG LEVELS IJ ONE (13:30)
== END 2023-04-25 13:59 | disposition home or self-care (01) ==
LOC: ED 08:28 → INTOOBSV 12:09 → MED SURG 12:09
PROVIDERS: ADMIT Internal Medicine; ATTEND Internal Medicine
DX: I26.99 Other pulmonary embolism without acute cor pulmonale (principal); E78.5 Hyperlipidemia, unspecified; E66.9 Obesity, unspecified; R78.81 Bacteremia; R00.0 Tachycardia, unspecified; Z20.828 Contact with and (suspected) exposure to other viral communicable diseases
CPT/HCPCS: 0241U; 36000; 36415; 71260; 80053; 80061; 83721; 83880; 84484; 84703; 85025; 85220; 85379; 85610; 85730; 86308; 87040; 87651; 93005; 93041; 93306; 93970; 94760; 96372; 99285; 99291; Q3014; 93268; J1650; A9270-GY; G0378; J3370